=== PATIENT | female | born 2000 | race Two or more races ===

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

== ENCOUNTER 2018-03-23 04:32 | Emergency (ER) | payer SELFPAY ==
[~2018-03-23] VITALS: Ht 162.6 cm; Wt 90.7 kg
[~2018-03-23 04:32] MED LIST: CYCL10TA2 PO; INSU100I27 SQ; METF500T16 PO; NAPR-683 PO; inhaler
[2018-03-23 04:35] VITALS: BP 143/73
--- NOTE | 2018-03-23 05:02 | PHYS DOC ---
Past Medical History Past Medical History: Diabetes-Type I Past Surgical History: No Surgical History Alcohol Use: Occasionally Drug Use: None Adult General Chief Complaint Chief Complaint: FOREIGNBODY EAR HPI HPI Patient is a 17 year old female who presents with left ear pain. Proximally an hour prior to arrival patient felt like an insect went to her year. Patient was able to get a couple of legs off but was unable to remove the object. It felt like it was still moving in her ear. Nothing seems to make the discomfort that her or worse. Pain is mild to moderate in intensity.[] Review of Systems Review of Systems Constitutional: Denies fever or chills [] Eyes: Denies change in visual acuity, redness, or eye pain [] HENT: Denies nasal congestion or sore throat, see history of present illness [] Respiratory: Denies cough or shortness of breath [] Cardiovascular: No additional information not addressed in HPI [] GI: Denies abdominal pain, nausea, vomiting, bloody stools or diarrhea [] : Denies dysuria or hematuria [] Musculoskeletal: Denies back pain or joint pain [] Integument: Denies rash or skin lesions [] Neurologic: Denies headache, focal weakness or sensory changes [] Endocrine: Denies polyuria or polydipsia [] All other systems were reviewed and found to be within normal limits, except as documented in this note. Allergies Allergies Allergies Coded Allergies Type Severity Reaction Last Updated Verified No Known Drug Allergies 04/06/14 No Physical Exam Physical Exam Constitutional: Well developed, well nourished, no acute distress, non-toxic appearance. [] HENT: Normocephalic, atraumatic, bilateral external ears normal, left ear has what appears to be an insect in there not actively moving. Oropharynx moist, no oral exudates, nose normal. [] Eyes: PERRLA, EOMI, conjunctiva normal, no discharge. [] Neck: Normal range of motion, no tenderness, supple, no stridor. [] Cardiovascular:Heart rate regular rhythm, no murmur [] Lungs & Thorax: Bilateral breath sounds clear to auscultation [] Abdomen: Not examined[] Skin: Warm, dry, no erythema, no rash. [] Back: No tenderness, no CVA tenderness. [] Extremities: No tenderness, no cyanosis, no clubbing, ROM intact, no edema. [] Neurologic: Alert and oriented X 3, normal motor function, normal sensory function, no focal deficits noted. [] Psychologic: Affect normal, judgement normal, mood normal. [] Current Patient Data Vital Signs Vital Signs Date Time Temp Pulse Resp B/P (MAP) Pulse Ox O2 Delivery O2 Flow Rate FiO2 03/23/18 04:35 98.7 79 18 143/73 (96) 99 Room Air 98.7 EKG EKG [] Radiology/Procedures Radiology/Procedures [] Course & Med Decision Making Course & Med Decision Making Pertinent Labs and Imaging studies reviewed. (See chart for details) ED course: Patient arrived, was placed in bed, tolerated exam well. Patient had 5 mL of 1% lidocaine instilled in the ear. After this was drained patient reported feeling no more pain in her ear. A insect was removed with alligator forceps without any complications. Repeat visualization of the TM showed it to be intact, no other insects were noted. There was some cerumen noted in the ear canal. Patient tolerated procedure well. Patient was discharged in improved condition. Medical decision making: There does not appear to be significant retained foreign body. No evidence of TM perforation. No evidence of otitis externa or mastoiditis.[] Dragon Disclaimer Dragon Disclaimer This electronic medical record was generated, in whole or in part, using a voice recognition dictation system. Departure Departure Impression: Primary Impression: Acute foreign body of ear canal Disposition: 01 HOME, SELF-CARE Condition: GOOD Referrals: NO PCP (PCP) Patient Instructions: Ear Foreign Body Additional Instructions: Follow-up with your regular doctor in 2 days. If you do not have a regular doctor a list of local low-cost clinics will be provided for you. Return to the ER if worsening pain or any other concerns. Problem Qualifiers Primary Impression: Acute foreign body of ear canal Encounter type: initial encounter Laterality: left Qualified Codes: T16.2XXA - Foreign body in left ear, initial encounter NIDIA SWIFT DO Mar 23, 2018 05:02
== END 2018-03-23 05:15 | disposition home or self-care (01) ==
LOC: ER 04:32
DX: T16.2XXA Foreign body in left ear, initial encounter (principal); E10.9 Type 1 diabetes mellitus without complications; X58.XXXA Exposure to other specified factors, initial encounter; Y93.89 Activity, other specified; Y92.89 Other specified places as the place of occurrence of the external cause; Y99.8 Other external cause status
CPT/HCPCS: 69200; 99284

== ENCOUNTER 2020-05-19 22:48 | Emergency (ER) | payer SELFPAY ==
[~2020-05-19] VITALS: Ht 162.6 cm; Wt 90.0 kg
[2020-05-19 23:06] VITALS: BP 138/87
[2020-05-19] MEDS ORDERED: CYCL10TA2 PO (23:15)
[2020-05-19] MEDS ORDERED: TRAM-48 PO (23:15)
--- NOTE | 2020-05-19 23:16 | PHYS DOC ---
Past Medical History Past Medical History: Diabetes-Type I Past Surgical History: No Surgical History Smoking Status: Never Smoker Alcohol Use: Occasionally Drug Use: None General Adult EDM: Chief Complaint: FLANK PAIN HPI: HPI: Patient is a 19 year old female with a past medical history of diabetes presents with a chief complaint of left flank pain. Patient states pain has been ongoing since Saturday progressively becoming worse. Pain is located left flank with radiation to suprapubic region. Patient's pain is exacerbated with movement. Patient denies any associated nausea vomiting urinary frequency urgency or dysuria. Patient's last menstrual period was May 05. On exam patient's pain is reproducible to palpation and with with twisting and turning of patients torso. Patient has taken [id number] Tylenol with minimal relief. On exam there is no saddle anesthesia she has had no loss of bowel or bladder. She denies any trauma. Patient ambulated into the ER with a normal steady gait. She arrived by private vehicle. Review of Systems: Review of Systems: Constitutional: Denies fever or chills. [] Eyes: Denies change in visual acuity. [] HENT: Denies nasal congestion or sore throat. [] Respiratory: Denies cough or shortness of breath. [] Cardiovascular: Denies chest pain or edema. [] GI: Denies abdominal pain, nausea, vomiting, bloody stools or diarrhea. [] : Denies dysuria. [] Musculoskeletal: Positive back pain Integument: Denies rash. [] Neurologic: Denies headache, focal weakness or sensory changes. [] Endocrine: Denies polyuria or polydipsia. [] Lymphatic: Denies swollen glands. [] Psychiatric: Denies depression or anxiety. [] Heart Score: Risk Factors: Risk Factors: DM, Current or recent (<one month) smoker, HTN, HLP, family history of CAD, obesity. Risk Scores: Score 0 - 3: 2.5% MACE over next 6 weeks - Discharge Home Score 4 - 6: 20.3% MACE over next 6 weeks - Admit for Clinical Observation Score 7 - 10: 72.7% MACE over next 6 weeks - Early Invasive Strategies Allergies: Allergies: Allergies Coded Allergies Type Severity Reaction Last Updated Verified No Known Drug Allergies 04/06/14 No Physical Exam: PE: Constitutional: Well developed, well nourished, no acute distress, non-toxic appearance. [] HENT: Normocephalic, atraumatic, bilateral external ears normal, oropharynx [address], no oral exudates, nose normal. [] Eyes: PERRLA, EOMI, conjunctiva normal, no discharge. [] Neck: Normal range of motion, no tenderness, supple, no stridor. [] Cardiovascular:Heart rate regular rhythm, no murmur [] Lungs & Thorax: Bilateral breath sounds clear to auscultation [] Abdomen: Bowel sounds normal, soft, no tenderness, no masses, no pulsatile masses. [] Skin: Warm, dry, no erythema, no rash. [] Back: Tender to palpation left paraspinal at the level L3-L4 Extremities: No tenderness, no cyanosis, no clubbing, ROM intact, no edema. [] Neurologic: Alert and oriented X 3, normal motor function, normal sensory function, no focal deficits noted. [] Psychologic: Affect normal, judgement normal, mood normal. [] EKG: EKG: [] Radiology/Procedures: Radiology/Procedures: [] Course & Med Decision Making: Course & Med Decision Making Pertinent Labs and Imaging studies reviewed. (See chart for details) [] Patient was evaluated for chief complaint. Work-up consisted of laboratory analysis. Based upon history of present illness and physical exam no radiologic imaging ordered. Patient's pain is reproducible suspect musculoskeletal. Treatment included Toradol and Flexeril. Patient discharged home with prescription Ultram and Flexeril. Dragon Disclaimer: Dragon Disclaimer: This electronic medical record was generated, in whole or in part, using a voice recognition dictation system. Departure Departure Impression: Primary Impression: Back pain Additional Impression: UTI (lower urinary tract infection) Disposition: 01 DC HOME SELF CARE/HOMELESS Condition: STABLE Referrals: NO PCP (PCP) Patient Instructions: Back Pain, Adult, Urinary Tract Infection Scripts Cyclobenzaprine Hcl (CYCLOBENZAPRINE HCL) 10 Mg Tablet 10 MG PO TID, #20 TAB Prov: JESSICA TEJEDA DO 05/19/20 Tramadol Hcl (ULTRAM) 50 Mg Tablet 1 TAB PO PRN Q6HRS PRN for pain MDD 4 Tablet(s) for 7 Days, #28 TAB 0 Refills Prov: JESSICA TEJEDA DO 05/19/20 JESSICA TEJEDA DO May 19, 2020 23:15
[2020-05-19 23:20] LABS: BILIRUBIN,URINE NEGATIVE (NEG); CLARITY,URINE TURBID; COLOR,URINE YELLOW; NITRITE,URINE POSITIVE (NEG); PH,URINE 5.5 (<5.0-8.0); PROTEIN,URINE 100 mg/dL (NEG-TRACE); UROBILINOGEN,URINE 0.2 mg/dL (0.2 mg/dL)
[2020-05-19 23:24] LABS: U PREG PATIENT NEGATIVE (NEG)
[2020-05-19 23:25] LABS: BACTERIA,URINE MANY /HPF (0-FEW)
[2020-05-19] MEDS ORDERED: CYCLOBENZAPRINE 10 MG TABLET. PO ONE (23:30)
[2020-05-19] MEDS ORDERED: NITR100C62 PO (23:36)
[2020-05-20] MEDS ORDERED: NITROFURANTOIN MONOHYD/M-CRYST 100 MG CAPSULE. PO ONE
== END 2020-05-19 23:58 | disposition home or self-care (01) ==
LOC: ER 22:48
DX: N39.0 Urinary tract infection, site not specified (principal); M54.5 Low back pain; E10.9 Type 1 diabetes mellitus without complications
CPT/HCPCS: 81001; 81025; 87086; 99283